=== PATIENT | male | born 1995 | race Caucasian/White ===

== ENCOUNTER 2017-10-02 13:31 | Emergency (ER) | payer SELFPAY ==
[~2017-10-02] VITALS: Ht 167.6 cm; Wt 64.0 kg
[2017-10-02 13:34] VITALS: BP 110/69
[2017-10-02 14:18] LABS: CLARITY URINE TURBID (CLEAR); COLOR URINE YELLOW (YELLOW); KETONES URINE NEGATIVE (NEGATIVE); LEUKOCYTE ESTERASE URINE 3+ (NEGATIVE); NITRITE URINE NEGATIVE (NEGATIVE); OCCULT BLOOD URINE TRACE (NEGATIVE); PROTEIN URINE TRACE (NEGATIVE); SPECIFIC GRAVITY URINE 1.022 (1.005-1.030)
[2017-10-02] MEDS ORDERED: AZITHROMYCIN 500 MG TABLET PO ONE (15:00)
[2017-10-02] MEDS ORDERED: CEFTRIAXONE SODIUM 250 MG/VIAL IM ONE (15:00)
== END 2017-10-02 18:12 | disposition left against medical advice (07) ==
LOC: ER 13:31
DX: Z11.3 Encounter for screening for infections with a predominantly sexual mode of transmission (principal); R36.9 Urethral discharge, unspecified
CPT/HCPCS: 81003; 87086; 96372; 99284; J0696